=== PATIENT | female | born 1960 | race Caucasian/White ===

== ENCOUNTER 2020-05-16 08:38 | Day surgery (SDC) | payer OTHER ==
--- NOTE | 2020-05-15 13:22 | RAD REPORT ---
EXAM DESCRIPTION: RAD - Chest Pa And Lat (2 Views) - 05/15/2020 1:16 pm CLINICAL HISTORY: pre-op Chest pain. COMPARISON: CHEST SINGLE VIEW dated 12/24/2010; CHEST PA AND LAT 2 VIEW dated 08/25/2010; CHEST PA AND LAT 2 VIEW dated 09/18/2008; CHEST PA AND LAT 2 VIEW dated 11/21/2007 FINDINGS: The lungs are clear. The heart is normal in size. No displaced fractures. Cholecystectomy clips. IMPRESSION: No acute or concerning finding suspected.
[2020-05-15 14:41] LABS: Absolute Lymphocytes (CBC) 1.9 K/uL (0.7-4.9); Basophils % 0.9 % (0-1.3); Lymphocytes % 25.3 % (15.3-44.8); MPV 9.1 fL (7.6-11.3); RBC Red Blood Cell Count 4.58 M/uL (3.86-4.86)
[2020-05-15 14:56] LABS: Potassium 3.9 mmol/L (3.5-5.1)
[2020-05-16] MEDS ORDERED: Ringers Lactate 1,000 ML IV ONE (09:30)
[2020-05-16] MEDS: CEFAZOLIN/SWI 1gm 1 GM/10 ML SYR ONE ×2 (10:10→11:25)
[2020-05-16] MEDS ORDERED: FENTANYL CITR 100 MCG/2 ML ONE (11:30)
[2020-05-16] MEDS ORDERED: LIDOCAINE 1% MPF 5 ML VIAL ONE (11:30)
[2020-05-16] MEDS ORDERED: propofoL 200 MG/20 ML VIAL IV ONE ×2 (11:30→11:51)
[2020-05-16] MEDS ORDERED: MIDAZOLAM HCL 2 MG/2 ML INJ ONE (11:30)
[2020-05-16] MEDS ORDERED: KETOROLAC 30 MG/ML INJ ONE (11:56)
[2020-05-16] MEDS ORDERED: dexAMETHasone 10 MG/ML VIAL ONE (11:56)
[2020-05-16] MEDS ORDERED: ONDANSETRON 4 MG/2 ML VIAL ONE (12:01)
[2020-05-16] MEDS: HYDROMORPHONE HCL 1 MG/ML INJ ONE ×4 (12:03→12:18)
--- NOTE | 2020-05-16 12:17 | OP ---
Date of Procedure: 05/16/2020 Surgeon: Mike Hernandez MD Packaging Tech: FLAVIO Pitt. Preoperative Diagnosis: Tender left foot mass. Postoperative Diagnosis: Tender left foot mass. Procedure: Wide excision of left foot mass 3 x 1 cm. Estimated Blood Loss: Minimal. Specimen: Left foot mass. Findings: As above. Anesthesia: General. Complications: None. Disposition: The patient tolerated the procedure in stable condition and taken to Recovery in good g eneral condition. Procedure In Detail: The patient was brought to the OR, placed in supine position. General anesthes ia begun. Patient was prepped and draped in the usual sterile fashion. Then, 15 blade was used to m juan a 3 x 1 cm incision to excise the area which the patient had pinpointed. It is where she felt a very small nodule, which was very tender, and this was excised down to the deep subcutaneous tissue a nd sent to Pathology. Wound was irrigated. Bleeding was controlled with cautery. Flaps were create d and then 2-0 nylon was used to approximate the subcutaneous tissue and skin. Sterile dressing was applied. Patient was awakened and taken to Recovery in good general condition. Discharge Note: The patient will go to Day Surgery and home when stable. Disposition: Home. Condition: Stable. Discharge Instructions: Resume home medications and diet. Activity as tolerated. No heavy lifting. Remove outer dressing in 2 days. Shower. Keep wound clean and dry. Follow up in my office in 2 w eeks. Call for appointment. Tylenol No. 3 one tablet p.o. q.4 p.r.n. pain. /MODL Voice ID: [id number] Report ID: [id number]
[2020-05-16] MEDS ORDERED: HYDROMORPHONE HCL 1 MG/ML INJ ONE (12:33)
[2020-05-16] MEDS ORDERED: HYDROCODONE/APAP 7.5/325 MG TAB PO ONE (13:16)
[2020-05-16] MEDS ORDERED: HYDROCODONE/APAP 7.5/325 MG TAB ONE (13:27)
[2020-05-16 14:06] VITALS: BP 144/66; TEMP 97.5; O2SAT 94
== END 2020-05-16 13:45 | disposition home health service (06) ==
LOC: OR 08:38
PROVIDERS: ATTEND Surgery
PROC: 0JBR0ZZ Excision of Left Foot Subcutaneous Tissue and Fascia, Open Approach (ICD-10-PCS; principal; 2020-05-16 10:15)
DX: R22.42 Localized swelling, mass and lump, left lower limb (principal); L57.0 Actinic keratosis; E07.9 Disorder of thyroid, unspecified; Z20.828 Contact with and (suspected) exposure to other viral communicable diseases
CPT/HCPCS: 93005; 85025; 80048; 36415; 88305; 71046; 11423; U0002; J2704 ×2; J2250; J3010; J1100; J1170 ×3; J0690; J7120; J2405